=== PATIENT | female | born 1980 | race Caucasian/White ===

== ENCOUNTER 2016-12-10 04:52 | Inpatient (IN) | payer OTHER ==
[~2016-12-10] VITALS: Ht 160 cm; Wt 86.2 kg
[2016-12-10] MEDS ORDERED: TUMS500 MG PO (06:37)
[2016-12-10 06:38] VITALS: BP 93/57; Ht 160 cm; Wt 86.2 kg
[2016-12-10 06:38] LABS: HEMATOCRIT 35.4 % (36.0-48.0); HEMOGLOBIN 11.8 g/dL (12-16); MCHC 33.3 g/dL (31.0-37.0); MCV 92.9 fL (80.0-100.0); MEAN PLATELET VOLUME 10.9 fL (7.4-10.4); RBC 3.81 10x6/uL (4.00-5.40); RDW 13.4 % (11.5-14.5); WBC 8.7 10x3/uL (4.8-10.8)
[2016-12-10] MEDS ORDERED: PRENATAL COMPLE1 TAB PO (06:38)
[2016-12-10 14:42] LABS: APPEARANCE CLOUDY (CLEAR); BACTERIA MODERATE /hpf (NONE SEEN); BILIRUBIN NEGATIVE (NEGATIVE); COLOR YELLOW (YELLOW); EPITHELIAL CELLS 0-5 /hpf (0-5); GLUCOSE NEGATIVE (NEGATIVE); KETONE NEGATIVE (NEGATIVE); LEUKOCYTE ESTERASE NEGATIVE (NEGATIVE); NITRITE NEGATIVE (NEGATIVE); PROTEIN NEGATIVE (NEGATIVE); RED CELLS - URINE RARE /hpf (0-5); UROBILINOGEN NORMAL (NORMAL); WHITE CELLS - URINE RARE /hpf (0-5)
[2016-12-10 14:43] LABS: AMORPHOUS SEDIMENT <1+ /lpf (NONE SEEN); CALCIUM OXALATE CRYSTALS 0-5 /hpf (NONE SEEN); MUCUS <1+ /lpf (NONE SEEN)
[2016-12-10 15:15] LABS: UDS - AMPHET NEGATIVE QUAL (NEGATIVE); UDS - BARB NEGATIVE QUAL (NEGATIVE); UDS - BENZO NEGATIVE QUAL (NEGATIVE); UDS - COCAINE NEGATIVE QUAL (NEGATIVE); UDS - METH NEGATIVE QUAL (NEGATIVE); UDS - OPIATE NEGATIVE QUAL (NEGATIVE); UDS - PCP NEGATIVE QUAL (NEGATIVE); UDS - THC NEGATIVE QUAL (NEGATIVE)
--- NOTE | 2016-12-10 16:00 | NUR ---
PT WAS RECEIVED FROM LABOR AND DELIVERY. GEN- AWAKE AND ALERT. LUNGS- CLEAR. HEART- RRR. ABD- SOFT, TENDER FUNDUS FIRM. SMALL LOCIA RUBRA. EXT- NO EDEMA. SALINE LOCK PATENT LEFT WRIST. FAMILY AT BEDSIDE. BED IS LOW, SIDE RAILS UP X 2 AND CALL LIGHT IN REACH.
--- NOTE | 2016-12-10 16:50 | OP ---
PATIENT NAME: JOSE LUNA MEDICAL RECORD: [id number] LOCATION:[id number] ADMISSION DATE:12/10/16 SURGEON: SANTHOSH PEREZ MD DATE OF OPERATION: 12/10/2016 Delivery Note Spontaneous vaginal delivery of male weighing 7 pounds 12-1/2 ounces, 7 and 8 Apgars. No episiotomy, no laceration. Epidural anesthesia. Spontaneous delivery of intact-appearing placenta. Cord blood pH drawn and pending. COMPLICATIONS OF DELIVERY: None. TRANSINT:[id number] Voice Confirmation ID: [id number] DOCUMENT ID: [id number] SANTHOSH PEREZ MD at 1650 CC: [id number] DICTATION DATE: 12/10/16 1147 FINE GRADE OPERATOR: 12/10/16 1406 ADM IN [place] [id number] [place] [address]
--- NOTE | 2016-12-10 17:01 | NUR ---
PT IS RESTING IN BED HOLDING BABY. OFFERS NO COMPLAINTS.
--- NOTE | 2016-12-10 18:44 | NUR ---
PT IS RESTING IN BED. OFFERS NO COMPLAINTS. BED IS LOW, SIDE RAILS UP X 2, CALL LIGHT IN REACH. SMALL MARNI CORBIN.
--- NOTE | 2016-12-10 19:00 | NUR ---
SALINE LOCK D'CD DUE TO PT C/O TENDERNESS AT SIGHT. TIP INTACT.
[2016-12-10 19:56] VITALS: BP 121/77
--- NOTE | 2016-12-10 19:56 | NUR ---
PT RECEIVED SITTING UP IN BED AWAKE AND ALERT. CHEERFUL. FAMILY AT BEDSIDE. VSS. HEART RRR. LUNG SOUNDS CLEAR BILATERALLY. BOWEL SOUNDS ACTIVE X4 QUADRENTS. ABDOMEN SOFT. FUNDUS FIRM AND MIDLINE U/2. LIGHT LOCHIA RUBRA NOTED TO REBECCA PAD AT THIS TIME. PT STATES LOCHIA HAS BEEN LIGHT TO MODERATE THROUGHOUT THE DAY. PT RATES PAIN 0/10 AT THIS TIME. PERINEUM FREE OF EDEMA. PT REQUESTS PADS AND MESH PANTIES AT THIS TIME. DENIES OTHER NEEDS. BED LOW. PHONE AND CALL LIGHT IN REACH. SRX2.
--- NOTE | 2016-12-10 21:13 | NUR ---
PT UP AMBULATING IN ROOM AT THIS TIME. FOB RECLINED IN BED HOLDING IN ARMS. LOOKING LOVINGLY AT INFANT. PT DENIES NEEDS AT THIS TIME. BED LOW. PHONE AND CALL LIGHT IN REACH. SRX2.
--- NOTE | 2016-12-10 21:17 | NUR ---
ADMINISTERED MILK OF MAG PER ORDERS AT THIS TIME. PT REQUESTS ICE WATER. DENIES OTHER NEEDS.
--- NOTE | 2016-12-10 22:56 | NUR ---
PT AT THIS TIME. DENIES NEEDS. BED LOW. PHONE AND CALL LIGHT IN REACH. SRX2.
--- NOTE | 2016-12-11 00:11 | NUR ---
PT SITTING UP IN BED WITH ON CHEST. FOB AT BEDSIDE. DENIES NEEDS AT THIS TIME. BED LOW. PHONE AND CALL LIGHT IN REACH. SRX2.
--- NOTE | 2016-12-11 02:04 | NUR ---
PT RESTING QUIETLY IN BED WITH INFANT ON CHEST AT THIS TIME. DENIES NEEDS. BED LOW. PHONE AND CALL LIGHT IN REACH. SRX2.
--- NOTE | 2016-12-11 03:07 | NUR ---
INFANT TO NURSERY AT THIS TIME. PT DENIES NEEDS.
--- NOTE | 2016-12-11 04:30 | NUR ---
PT RESTING QUIETLY AT THIS TIME WITH EYES CLOSED. RESPIRATIONS EVEN, NON-LABORED. NO ACUTE DISTRESS NOTED AT THIS TIME. BED LOW. PHONE AND CALL LIGHT IN REACH. SRX2.
[2016-12-11 06:17] LABS: RAPID PLASMA REAGIN Non Reactive (Non Reactive)
--- NOTE | 2016-12-11 06:47 | NUR ---
PT RESTING QUIETLY AT THIS TIME WITH INFANT ON CHEST. DENIES NEEDS. BED LOW. PHONE AND CALL LIGHT IN REACH. SRX2.
[2016-12-11 07:25] VITALS: BP 111/66
--- NOTE | 2016-12-11 07:25 | NUR ---
PT LYING IN BED WITH FOB AT BEDSIDE. ASSESSMENT DONE AND WILL DOCUMENT. S/R UP X 2, CALL LIGHT WITHIN REACH. STATES NO FURTHER NEEDS AT THIS TIME. WILL CONTINUE TO MONITOR.
[2016-12-11 07:51] LABS: HEMATOCRIT 35.1 % (36.0-48.0); HEMOGLOBIN 11.7 g/dL (12-16); MCHC 33.3 g/dL (31.0-37.0); MCV 93.1 fL (80.0-100.0); MEAN PLATELET VOLUME 10.7 fL (7.4-10.4); RBC 3.77 10x6/uL (4.00-5.40); RDW 13.4 % (11.5-14.5); WBC 10.7 10x3/uL (4.8-10.8)
--- NOTE | 2016-12-11 08:05 | NUR ---
PROVIDED FRESH ICE WATER. PT SITTING IN BED. FOB AT BEDSIDE AND INFANT IN THE BEDSIDE OPEN AIR CRIB. S/R UP X 2, BED IN LOWEST POSITION, CALL LIGHT WITHIN REACH. STATES NO NEEDS AT THIS TIME.
--- NOTE | 2016-12-11 09:20 | NUR ---
DR. GILA TAYLOR
--- NOTE | 2016-12-11 09:48 | NUR ---
PT SITTING IN BED HOLDING AND TALKING TO . FOB AT BEDSIDE RESTING WITH EYES CLOSED. STATES 0 PAIN ON NUMERIC SCALE. WILL CONTINUE TO MONITOR.
--- NOTE | 2016-12-11 10:14 | NUR ---
PROVIDED ICE AND JUICE. STATES NO NEEDS AND "I AM NOT HURTING".
--- NOTE | 2016-12-11 10:20 | NUR ---
ABIMAEL SITTING UP IN HER BED. SHE DENIES UNCONTROLLED PAIN, HEAVY BLEEDING OR PASSING CLOTS. SHE IS WITHOUT QUESTIONS AND DENIES NEEDS.
--- NOTE | 2016-12-11 10:20 | NUR ---
PATIENT SITTING UP IN HER BED. DENIES UNCONTROLLED PAIN, HEAVY BLEEDING OR PASSING CLOTS. VOICES UNDERSTANDING OF POC FOR THE DAY. EXCITED TO BE GOING HOME. IS WITHOUT QUESTIONS/ CONCERNS.
--- NOTE | 2016-12-11 11:37 | NUR ---
INFANT NURSING. FOB AT BEDSIDE. STATES NO NEEDS.
--- NOTE | 2016-12-11 12:50 | NUR ---
PT UP TO VOID. FOB HOLDING . PT STATES NO NEEDS AND 0 PAIN ON NUMERIC SCALE.
--- NOTE | 2016-12-11 13:46 | NUR ---
PT SITTING IN BED. FOB RESTING AT BEDSIDE. PT STATES NO NEEDS AT THIS TIME.
--- NOTE | 2016-12-11 15:08 | NUR ---
PT HOLDING INFANT WITH SYBLINGS AROUND BED SMILING AND TALKING. FOB AT BEDSIDE. PT STATES NO NEEDS AT THIS TIME.
[2016-12-11] MEDS ORDERED: MEPERIDINE HCL50 MG PO (15:36)
[2016-12-11] MEDS ORDERED: IBUPROFEN600 MG PO (15:37)
--- NOTE | 2016-12-11 16:10 | NUR ---
DISCHARGE INSTRUCTIONS GONE OVER AND PT STATES UNDERSTANDING. PRESCRIPTIONS GIVEN ALONG WITH FOLLOW UP APPOINTMENT CARD. FAMILY IS LOOKING FORWARD TO GET HOME.
--- NOTE | 2016-12-11 16:15 | NUR ---
WHEELED PT AND TO FRONT WHERE FOB WAS WAITING TO HELP THEM INTO THE CAR. ALL BELONGINGS WERE TAKEN FROM ROOM.
--- NOTE | 2016-12-11 16:45 | NUR ---
PATIENT UNDERSTANDS THAT SHE WILL BE ROOMING IN LONG HER IS ADMITTED. SHE DENIES HEAVY BLEEDING. DENIES UNCONTROLLED PAIN.
--- NOTE | 2016-12-11 17:08 | NUR ---
PT HOLDING INFANT. SYBLINGS AROUND THE BED TALKING AND SMILING. FOB AT BEDSIDE. PT STATES NO NEEDS.
--- NOTE | 2016-12-11 18:48 | NUR ---
WALKED PT OVER TO ROOM 1217 WHERE SHE WILL BE ROOMING IN.
--- NOTE | 2016-12-11 18:49 | NUR ---
SMOKING CESATION INFORMATION WAS PROVIDED.
== END 2016-12-11 19:54 | disposition home or self-care (01) | DRG 775 ==
LOC: D.LD 04:52 → D.WS 17:08 → D.LD 02-12 05:00
PROVIDERS: ADMIT Obstetrics & Gynecology
PROC: 10E0XZZ Delivery of Products of Conception, External Approach (ICD-10-PCS; principal; 2016-12-10)
DX: O80 Encounter for full-term uncomplicated delivery (principal); Z3A.39 39 weeks gestation of pregnancy; Z37.0 Single live birth

== ENCOUNTER 2020-03-12 12:37 | Inpatient (IN) | payer OTHER ==
[~2020-03-12] VITALS: Ht 160 cm; Wt 87.6 kg
[~2020-03-12 12:37] MED LIST: IBUPROFEN600 MG PO; MEPERIDINE HCL50 MG PO; PRENATAL COMPLE1 TAB PO; TUMS500 MG PO
[2020-05-12 21:06] VITALS: BP 124/76; Ht 160 cm; Wt 87.6 kg
[2020-05-12 22:34] LABS: BILIRUBIN NEGATIVE (NEGATIVE); GLUCOSE NEGATIVE (NEGATIVE); KETONE MODERATE mg/dL (NEGATIVE); NITRITE NEGATIVE (NEGATIVE); UROBILINOGEN NORMAL (NORMAL)
[2020-05-12 22:35] LABS: HEMATOCRIT 35.1 % (36.0-48.0); HEMOGLOBIN 11.7 g/dL (12-16); MCH 31.4 pg (26.0-34.0); MCHC 33.3 g/dL (31.0-37.0); MCV 94.1 fL (80.0-100.0); MEAN PLATELET VOLUME 10.8 fL (7.4-10.4); RBC 3.73 10x6/uL (4.00-5.40); RDW 13.8 % (11.5-14.5)
[2020-05-12 22:39] LABS: UDS - AMPHET NEGATIVE QUAL (NEGATIVE); UDS - BARB NEGATIVE QUAL (NEGATIVE); UDS - BENZO NEGATIVE QUAL (NEGATIVE); UDS - COCAINE NEGATIVE QUAL (NEGATIVE); UDS - OPIATE NEGATIVE QUAL (NEGATIVE); UDS - PCP NEGATIVE QUAL (NEGATIVE); UDS - THC NEGATIVE QUAL (NEGATIVE)
--- NOTE | 2020-05-13 02:00 | NUR ---
PT IS RESTING QUIETLY. NO C/O
--- NOTE | 2020-05-13 08:33 | NUR ---
TORADOL 10 MG GIVEN PO ORDERED FOR PT C/O PERINEAL PAIN OF "6-7" ON 0-10 PAIN SCALE.
--- NOTE | 2020-05-13 08:37 | NUR ---
FUNDUS FIRM AT U/1. RUBRA LOCHIA SMALL AMT. NO CLOTS EXPRSSED. TOWEL AND ICE PACK CHANGED.
--- NOTE | 2020-05-13 09:50 | NUR ---
PT SITS UP ON SIDE OF BED. EPIDURAL CATH DC'D WITH BLACK TIP INTACT. PIV CONVERTED TO SALINE LOCK. PT OOB AND AMB TO BR TO VOID. VOIDS SMALL AMT OF BLOOD-TINGED URINE. PERICARE DONE PER PT. PANTIES AND PAD ON. GOWN CHANGED. PT TRANSFERED VIA AMBULATORY TO ROOM 1221. PT ORIENTED TO ROOM, BED, AND CALL LIGHT. SR UP X 2. CALL LIGHT IN REACH. REPORT GIVEN TO Bryan JIMENEZ RN.
--- NOTE | 2020-05-13 09:55 | NUR ---
PT RECEIVED AMBULATORY TO ROOM 1221 FROM LABOR AND DELIVERY FOR CARE. PT TO BED, STEADY GAIT, AAOx3, DENIES PAIN OR ANY NEEDS. PT ORIENTED TO ROOM AND CALL LIGHT. WHITE BOARD UPDATED WITH POC AND NEXT MED TIMES. REPORT RECEIVED FROM SANDOVAL REYNA. Paulo, CL IN REACH. WILL CONT TO MONITOR.
--- NOTE | 2020-05-13 10:12 | NUR ---
FRESH ICE WATER GIVEN, FULL PP ASSESSMENT COMPLETED, SEE FLOWSHEET FOR DOC .
--- NOTE | 2020-05-13 11:40 | NUR ---
THIS RN TO ROOM FOR PT CHECK. PT SITTING UP IN BED, HOLDING . SIG OTHER ON BEDSIDE COUCH. PT DENIES PAIN, REQUESTS PILLOW AND BLANKET FOR SIG OTHER. PROVIDED REQUESTED. PT STATES SHE HAS NOT YET VOIDED AGAIN SINCE HER FIRST TIME UP AFTER DELIVERY. INSTRUCTED TO NOTIFY THIS RN IF SHE STILL HAS NOT VOIDED BY APPROX 1400 AND CAN DO A BLADDER SCAN IF SHE IS UNABLE TO VOID. UNDERSTANDING VERBALIZED. PT DRINKING WATER, DENIES NEED FOR REFILL. SRUx2, CL IN REACH. WILL CONT TO MONITOR.
--- NOTE | 2020-05-13 13:15 | NUR ---
THIS RN TO ROOM FOR PT CHECK. PT SITTING UP IN BED, HOLDING ON CHEST. PT DENIES PAIN OR ANY NEEDS. STATES SHE DID GET UP TO VOID AND VOIDED A LARGE AMOUNT OF URINE, DENIES ANY HEAVY BLEEDING OR CONCERNS. SRUx2, CL IN REACH. WILL CONT TO MONITOR.
[2020-05-13 15:15] VITALS: BP 132/79
--- NOTE | 2020-05-13 15:15 | NUR ---
THIS RN TO ROOM FOR VS AND PT CHECK. PT SITTING UP IN BED, INFANT TO BREAST. PT STATES IS NOT NURSING ANYMORE, REMOVES INFANT FROM BREAST. VSS, SEE FLOWSHEET FOR DOC. FF, ML, U/2. SMALL RUBRAL LOCHIA, NO CLOTS. PT STATES SHE JUST GOT UP TO BR TO VOID AND DENIES HEAVY BLEEDING OR CLOTS. FRESH ICE WATER GIVEN, WELL THANK YOU BOX AND FATHER MEAL TICKET FOR GUEST TRAY FOR DINNER. PT DENIES PAIN OR NEEDS AT THIS TIME. INSTRUCTED SHE MAY HAVE PRN TORADOL WHENEVER NEEDED. UNDERSTANDING VERBALZIED. SRUx2, CL IN REACH. SIG OTHER IN BEDSIDE CHAIR.
--- NOTE | 2020-05-13 16:56 | NUR ---
THIS RN TO ROOM FOR PT CHECK. PT SITTING UP IN BED, WATCHING TELEVISION, HOLDING INFANT. PT DENIES PAIN OR ANY NEEDS. SRUx2, CL IN REACH. WILL CONT TO MONITOR.
--- NOTE | 2020-05-13 17:54 | NUR ---
PT UP AMBULATING IN HALLS TO NURSERY AND BACK TO ROOM, SMILING, DENIES NEEDS. SIG OTHER WITH PT BACK TO ROOM.
--- NOTE | 2020-05-13 19:00 | NUR ---
REPORT GIVEN BY SANDOVAL RAI
[2020-05-13 19:55] VITALS: BP 145/88
--- NOTE | 2020-05-13 20:00 | NUR ---
ASSESSMENT COMPLETED. PT HAS NO C/O AT THIS TIME. HEART SOUNDS WNL, LUNGS SOUND CLEAR AND BS HEARD IN ALL QUADS. SKIN IS WARM AND DRY. PT STATES LOCHIA IS MOD-SMALL. FUNDUS IS FIRM. NO CRAMPING. PT IS UP AD DUC IN ROOM AND HALLS. PT IS ON A REGULAR DIET. CALL LIGHT IS WITHIN REACH.
--- NOTE | 2020-05-13 22:00 | NUR ---
PT IS HOLDING BABY. SHE HAS NO C/O OR NEEDS AT THIS TIME.
[2020-05-13 23:30] VITALS: BP 137/78
--- NOTE | 2020-05-14 00:15 | NUR ---
PT CONT TO DO WELL. DOZING AT THIS TIME. NO C/O OR NEEDS
--- NOTE | 2020-05-14 04:00 | NUR ---
ROUNDS MADE. BABY IS IN THE BED WITH MOTHER NURSING. MOM KNOWS BABY CAN'T SLEEP IN BED WITH HER.
--- NOTE | 2020-05-14 06:06 | NUR ---
PT IS RESTING QUIETLY. NO C/O OR NEEDS
[2020-05-14 07:00] LABS: HEMATOCRIT 32.7 % (36.0-48.0); HEMOGLOBIN 10.6 g/dL (12-16); MCH 30.7 pg (26.0-34.0); MCHC 32.4 g/dL (31.0-37.0); MCV 94.8 fL (80.0-100.0); MEAN PLATELET VOLUME 9.9 fL (7.4-10.4); RBC 3.45 10x6/uL (4.00-5.40); WBC 9.5 10x3/uL (4.8-10.8)
[2020-05-14 07:16] LABS: RAPID PLASMA REAGIN Non Reactive (Non Reactive)
--- NOTE | 2020-05-14 08:26 | NUR ---
DR. IVERSON HERE FOR ROUNDS. TO SEE PATIENT.
[2020-05-14 08:42] VITALS: BP 123/82
--- NOTE | 2020-05-14 08:45 | NUR ---
IV D/C'D. CATHETER INTACT. NO BLEEDING AT SITE. BANDAGE APPLIED. PT. GIVEN LINENS FOR SHOWER. NO CONCERNS OR NEEDS VOICED AT THIS TIME.
--- NOTE | 2020-05-14 11:48 | NUR ---
PT SITTING UP IN CHAIR AT BEDSIDE. NO NEEDS VOICED AT THIS TIME.
--- NOTE | 2020-05-14 13:37 | NUR ---
REVEIWED DISCHARGE INSTRUCTIONS WITH PT. STATES UNDERSTANDING. FOLLOW UP APPOINTMENT GIVEN FOR 06/12/20 @10:45. NO QUESTIONS OR CONCERNS STATED BY PATIENT. DISCHARGED HOME VIA WHEELCHAIR TO PRIVATE VEHICLE.
== END 2020-05-14 13:44 | disposition home or self-care (01) | DRG 807 ==
LOC: D.LD 05-12 20:34 → D.WS 05-12 20:34 → D.LD 05-14 12:34 → D.WS 05-14 13:44
PROVIDERS: Obstetrics & Gynecology; ADMIT Student in an Organized Health Care Education/Training Program; ATTEND Student in an Organized Health Care Education/Training Program
PROC: 3E033VJ Introduction of Other Hormone into Peripheral Vein, Percutaneous Approach (ICD-10-PCS; 2020-05-12)
PROC: 10E0XZZ Delivery of Products of Conception, External Approach (ICD-10-PCS; principal; 2020-05-13)
DX: O80 Encounter for full-term uncomplicated delivery (principal); Z37.0 Single live birth; Z3A.39 39 weeks gestation of pregnancy